=== PATIENT | male | born 1955 | race Caucasian/White ===

== ENCOUNTER 2017-08-22 22:32 | Inpatient (IN) | payer OTHER, MEDICAID ==
[~2017-08-22] VITALS: Ht 180.3 cm; Wt 81.3 kg
[2017-08-22 23:04] LABS: Eosinophils # (auto) 0.1 uL; Hemoglobin 17.1 g/dL (13.5-17.5); Lymphocytes # (auto) 1.5 uL; Neutrophils # (auto) 3.1 uL; Nucleated Red Blood Cells % 0.2 %; Platelet Count (auto) 261 10^3/uL (140-450); White Blood Cell 5.2 10^3/uL (4.4-10.8)
[2017-08-22 23:06] LABS: Basophils # (auto) 0 uL; Basophils % (auto) 0.8 % (0.0-2.0); Eosinophils % (auto) 1.2 % (0.0-7.0); Hematocrit 54.6 % (41.0-53.0); Lymphocytes % (auto) 29.2 % (10.0-50.0); Mean Corpuscular Hemoglobin 24.5 pg (28.0-32.0); Mean Corpuscular Hgb Conc. 31.3 g/dL (32.0-36.0); Mean Corpuscular Volume 78.3 fL (80.0-100.0); Monocytes # (auto) 0.5 uL; Monocytes % (auto) 9.2 % (0.0-12.0); Neutrophils % (auto) 59.6 % (37.0-80.0); Red Blood Cells 6.97 10^6/uL (4.5-5.90)
[2017-08-22 23:10] LABS: Red Cell Distribution Width 22.6 % (11.8-14.3)
[2017-08-22 23:16] LABS: INR 1.1 (0.9-1.15); Partial Thromboplastin Time 29.7 sec (22.64-33.71)
[2017-08-22 23:20] LABS: Albumin 3.1 g/dL (3.4-5.0); Calcium 8.8 mg/dL (8.5-10.1); Magnesium 2.3 mg/dL (1.6-2.6); Potassium 4.7 mmol/L (3.5-5.1)
[2017-08-22 23:27] LABS: Bilirubin, Total 0.9 mg/dL (0.2-1.0); Total Protein 7.4 g/dL (6.4-8.2)
[2017-08-23] MEDS ORDERED: NITROGLYCERIN 0.4 MG SL TAB SL PRN (07:00)
[2017-08-23] MEDS ORDERED: ENOXAPARIN SOD 100 MG/1 ML SYRINGE SC ONE (07:00)
[2017-08-23] MEDS ORDERED: ONDANSETRON HCL 4 MG/2 ML VIAL IV PRN (07:00)
[2017-08-23] MEDS ORDERED: ACETAMINOPHEN 325 MG TAB PO PRN (07:00)
[2017-08-23] MEDS ORDERED: MORPHINE SULFATE 4 MG/ML SYR/VIAL IV PRN (07:00)
[2017-08-23] MEDS ORDERED: TEMAZEPAM 15 MG CAP PO PRN (07:00)
[2017-08-23] MEDS ORDERED: DOCUSATE SOD 100 MG CAP PO PRN (07:00)
[2017-08-23] MEDS ORDERED: ASPirin 81 mg TAB PO SCH (10:00)
[2017-08-23 11:00] VITALS: BP 115/88
[2017-08-23] MEDS: FAMOTIDINE 20 MG TAB PO SCH ×2 (11:27→21:51)
[2017-08-23] MEDS: METOPROLOL SUCCINATE XL 50 MG TAB PO SCH (11:28)
[2017-08-23] MEDS: NIFEdipine ER 30 MG TAB PO SCH (11:28)
[2017-08-23 13:02] LABS: Basophils # (auto) 0.1 uL; Eosinophils # (auto) 0.1 uL; Lymphocytes # (auto) 1.9 uL; Monocytes # (auto) 0.5 uL; Neutrophils # (auto) 3.3 uL
[2017-08-23 13:04] LABS: Basophils % (auto) 1.2 % (0.0-2.0); Eosinophils % (auto) 1.2 % (0.0-7.0); Hematocrit 54.7 % (41.0-53.0); Lymphocytes % (auto) 32.7 % (10.0-50.0); Mean Corpuscular Hemoglobin 24.2 pg (28.0-32.0); Mean Corpuscular Hgb Conc. 31.2 g/dL (32.0-36.0); Mean Corpuscular Volume 77.6 fL (80.0-100.0); Neutrophils % (auto) 56.9 % (37.0-80.0); Nucleated Red Blood Cells % 0.1 %; Platelet Count (auto) 259 10^3/uL (140-450); Red Blood Cells 7.05 10^6/uL (4.5-5.90); White Blood Cell 5.9 10^3/uL (4.4-10.8)
[2017-08-23 13:05] LABS: Albumin 2.9 g/dL (3.4-5.0); BUN/Creatinine Ratio 9.6; Calcium 8.6 mg/dL (8.5-10.1); Potassium 4.4 mmol/L (3.5-5.1)
[2017-08-23 13:07] LABS: Red Cell Distribution Width 22.6 % (11.8-14.3)
[2017-08-23 13:08] LABS: Bilirubin, Total 0.6 mg/dL (0.2-1.0); Total Protein 6.8 g/dL (6.4-8.2)
[2017-08-23] MEDS ORDERED: IOHEXOL 350 MG/ML 100ML IJ ONE (16:07)
[2017-08-23 16:58] VITALS: BP 97/75
[2017-08-23] MEDS ORDERED: FUROSEMIDE 40 MG TAB PO SCH (18:00)
[2017-08-23] MEDS: TAMSULOSIN HYDROCHLORIDE 0.4 MG CAP PO SCH (18:09)
[2017-08-23] MEDS: HYDROcodone-ACET 5/325MG TAB PO PRN (19:35)
[2017-08-23] MEDS: MONTELUKAST SODIUM 10 MG TAB PO SCH (21:51)
[2017-08-23] MEDS: ATORVASTATIN 20 MG TAB PO SCH (21:51)
[2017-08-23 22:00] VITALS: BP_SYST 104; BP_SYST 110; BP_DIAS 77; BP_DIAS 81; BP_DIAS 85
[2017-08-23 22:28] LABS: Alcohol, Urine < 3.0 mg/dL (0-5); Amphetamine Screen, Urine NEGATIVE (NEGATIVE); Barbiturate Scree,Urine NEGATIVE (NEGATIVE); Benzodiazephine Screen, Urine NEGATIVE (NEGATIVE); Cannabinoid Screen, Urine NEGATIVE (NEGATIVE); Cocaine Screen, Urine NEGATIVE (NEGATIVE); Opiate Scree,Urine NEGATIVE (NEGATIVE); Phencyclidine Screen, Urine NEGATIVE (NEGATIVE)
[2017-08-24 04:42] VITALS: BP 114/79
[2017-08-24 07:00] LABS: Basophils # (auto) 0 uL; Basophils % (auto) 0.5 % (0.0-2.0); Eosinophils # (auto) 0.1 uL; Eosinophils % (auto) 1.7 % (0.0-7.0); Hematocrit 53.2 % (41.0-53.0); Hemoglobin 16.8 g/dL (13.5-17.5); Lymphocytes # (auto) 1.6 uL; Lymphocytes % (auto) 30.7 % (10.0-50.0); Mean Corpuscular Hemoglobin 24.3 pg (28.0-32.0); Mean Corpuscular Hgb Conc. 31.5 g/dL (32.0-36.0); Mean Corpuscular Volume 77.2 fL (80.0-100.0); Monocytes # (auto) 0.5 uL; Monocytes % (auto) 9.6 % (0.0-12.0); Neutrophils % (auto) 57.5 % (37.0-80.0); Nucleated Red Blood Cells % 0.3 %; Platelet Count (auto) 240 10^3/uL (140-450); Red Cell Distribution Width 22.5 % (11.8-14.3); White Blood Cell 5.2 10^3/uL (4.4-10.8)
[2017-08-24 07:19] LABS: Magnesium 2.1 mg/dL (1.6-2.6)
[2017-08-24 07:24] LABS: Bilirubin, Total 0.7 mg/dL (0.2-1.0); Calcium 8.6 mg/dL (8.5-10.1); Potassium 4.4 mmol/L (3.5-5.1); Total Protein 6.7 g/dL (6.4-8.2)
[2017-08-24 09:00] VITALS: BP 123/80
[2017-08-24] MEDS: ENOXAPARIN SOD 40 MG/0.4 ML SYRINGE SC SCH (10:26)
[2017-08-24] MEDS: FAMOTIDINE 20 MG TAB PO SCH ×2 (10:27→21:15)
[2017-08-24] MEDS: NIFEdipine ER 30 MG TAB PO SCH (10:28)
[2017-08-24] MEDS: ASPirin 81 mg TAB PO SCH (10:28)
[2017-08-24] MEDS: METOPROLOL SUCCINATE XL 50 MG TAB PO SCH (10:29)
[2017-08-24] MEDS: FUROSEMIDE 40 MG TAB PO SCH (10:30)
[2017-08-24] MEDS: HYDROcodone-ACET 5/325MG TAB PO PRN ×2 (10:33→18:27)
[2017-08-24 12:54] VITALS: BP 119/86
[2017-08-24 17:00] VITALS: BP 105/80
[2017-08-24] MEDS: TAMSULOSIN HYDROCHLORIDE 0.4 MG CAP PO SCH (18:26)
[2017-08-24] MEDS: ATORVASTATIN 20 MG TAB PO SCH (21:16)
[2017-08-24] MEDS: MONTELUKAST SODIUM 10 MG TAB PO SCH (21:16)
[2017-08-24 22:00] VITALS: BP 121/88
[2017-08-24] MEDS: guaiFENesin 200 MG/10 ML UD PO PRN (22:15)
[2017-08-25] VITALS (9 sets, daily range): BP systolic 92–146; BP diastolic 65–96
[2017-08-25] MEDS: guaiFENesin 200 MG/10 ML UD PO PRN ×2 (06:49→10:44)
[2017-08-25] MEDS ORDERED: ALBUTEROL SULF 2.5 MG/0.5ML(0.5%) NEB SOLN NEB ONE (07:00)
[2017-08-25] MEDS ORDERED: IPRATROPIUM BROM 0.5 MG/2.5ML INH SOL NEB ONE (07:00)
[2017-08-25] MEDS ORDERED: ALBUTEROL SULF 2.5 MG/0.5ML(0.5%) NEB SOLN ONE (07:04)
[2017-08-25] MEDS: ENOXAPARIN SOD 40 MG/0.4 ML SYRINGE SC SCH (10:33)
[2017-08-25] MEDS: FUROSEMIDE 40 MG TAB PO SCH (10:33)
[2017-08-25] MEDS: cefTRIAXone 1GM/10ml IVPUSH 10 ML IV SCH (10:33)
[2017-08-25] MEDS: METOPROLOL SUCCINATE XL 50 MG TAB PO SCH (10:34)
[2017-08-25] MEDS: NIFEdipine ER 30 MG TAB PO SCH (10:34)
[2017-08-25] MEDS: FAMOTIDINE 20 MG TAB PO SCH ×2 (10:34→22:13)
[2017-08-25] MEDS: ASPirin 81 mg TAB PO SCH (10:45)
[2017-08-25] MEDS: IPRATROPIUM BROM 0.5 MG/2.5ML INH SOL NEB SCH ×2 (13:29→20:27)
[2017-08-25] MEDS: ALBUTEROL SULF 2.5 MG/0.5ML(0.5%) NEB SOLN NEB SCH ×2 (13:30→20:27)
[2017-08-25] MEDS: TAMSULOSIN HYDROCHLORIDE 0.4 MG CAP PO SCH (17:51)
[2017-08-25] MEDS: HYDROcodone-ACET 5/325MG TAB PO PRN (17:56)
[2017-08-25] MEDS: ATORVASTATIN 20 MG TAB PO SCH (22:13)
[2017-08-25] MEDS: MONTELUKAST SODIUM 10 MG TAB PO SCH (22:13)
[2017-08-26] VITALS (8 sets, daily range): BP systolic 101–120; BP diastolic 66–93
[2017-08-26] MEDS: ALBUTEROL SULF 2.5 MG/0.5ML(0.5%) NEB SOLN NEB SCH ×4 (01:22→19:37)
[2017-08-26] MEDS: IPRATROPIUM BROM 0.5 MG/2.5ML INH SOL NEB SCH ×4 (01:22→19:37)
[2017-08-26] MEDS: NIFEdipine ER 30 MG TAB PO SCH (10:00)
[2017-08-26] MEDS ORDERED: LEVO750T2 PO (11:20)
[2017-08-26] MEDS ORDERED: SACC250C PO (11:20)
[2017-08-26] MEDS: cefTRIAXone 1GM/10ml IVPUSH 10 ML IV SCH (11:36)
[2017-08-26] MEDS: FAMOTIDINE 20 MG TAB PO SCH (11:37)
[2017-08-26] MEDS: ASPirin 81 mg TAB PO SCH (11:37)
[2017-08-26] MEDS: HYDROcodone-ACET 5/325MG TAB PO PRN (11:38)
[2017-08-26] MEDS: guaiFENesin 200 MG/10 ML UD PO PRN (11:38)
[2017-08-26] MEDS: ENOXAPARIN SOD 40 MG/0.4 ML SYRINGE SC SCH (11:38)
[2017-08-26] MEDS: METOPROLOL SUCCINATE XL 50 MG TAB PO SCH (11:43)
[2017-08-26] MEDS: FUROSEMIDE 40 MG TAB PO SCH (11:44)
[2017-08-26] MEDS: TAMSULOSIN HYDROCHLORIDE 0.4 MG CAP PO SCH (18:00)
== END 2017-08-26 20:56 | disposition home or self-care (01) | DRG 177 ==
LOC: EDBD 22:32 → ER 22:37 → TELE 22:38 → TELE-CENTR 08-23 10:17
PROVIDERS: ADMIT Nurse Practitioner; ATTEND Internal Medicine
DX: J15.6 Pneumonia due to other Gram-negative bacteria (principal); I21.4 Non-ST elevation (NSTEMI) myocardial infarction; N17.0 Acute kidney failure with tubular necrosis; J96.11 Chronic respiratory failure with hypoxia; I50.42 Chronic combined systolic (congestive) and diastolic (congestive) heart failure; N39.0 Urinary tract infection, site not specified; J44.0 Chronic obstructive pulmonary disease with (acute) lower respiratory infection; I11.0 Hypertensive heart disease with heart failure; I50.82 Biventricular heart failure; R55 Syncope and collapse; I25.10 Atherosclerotic heart disease of native coronary artery without angina pectoris; G47.33 Obstructive sleep apnea (adult) (pediatric); F17.200 Nicotine dependence, unspecified, uncomplicated; E78.5 Hyperlipidemia, unspecified; K57.30 Diverticulosis of large intestine without perforation or abscess without bleeding; Z82.49 Family history of ischemic heart disease and other diseases of the circulatory system; Z85.46 Personal history of malignant neoplasm of prostate; Z95.5 Presence of coronary angioplasty implant and graft; Z99.81 Dependence on supplemental oxygen; I25.2 Old myocardial infarction; Z83.3 Family history of diabetes mellitus; Z88.0 Allergy status to penicillin
CPT/HCPCS: 36415; 36600; 70450; 70551; 71045; 71275; 74176; 80053; 80061; 80307; 82805; 83735; 83880; 84443; 84484; 85025; 85379; 85610; 85730; 87070; 87077; 87186; 87205; 93005; 93306; 93886; 94640; 94761; 95819; 96372